=== PATIENT | female | born 1940 ===

== ENCOUNTER 2018-05-23 01:10 | Emergency (ER) | payer SELFPAY ==
[~2018-05-23] VITALS: Ht 157.5 cm; Wt 65.9 kg
[2018-05-23 01:20] VITALS: BP 150/72
[2018-05-23] MEDS ORDERED: LOSA25TA41 PO (01:27)
[2018-05-23] MEDS ORDERED: MECL-111 PO (01:27)
[2018-05-23] MEDS ORDERED: OMEP20 PO (01:27)
== END 2018-05-23 03:05 | disposition left against medical advice (07) ==
LOC: EMS 01:11
DX: R42 Dizziness and giddiness (principal); Z53.21 Procedure and treatment not carried out due to patient leaving prior to being seen by health care provider